=== PATIENT | male | born 1995 | race Caucasian/White ===

== ENCOUNTER 2023-11-11 12:43 | Emergency (ER) | payer OTHER ==
[2023-11-11 13:34] VITALS: BP 110/74; PULSE 88; RESP 18; TEMP 97.2; BMI 34.0
[2023-11-11 14:06] LABS: BASO % 0.4 % (0-2.0); HEMATOCRIT 44.4 % (35.4-49); HEMOGLOBIN 15.2 GM/dL (11.7-16.9); LYMPH % 22.2 % (8-40); MCH 30.5 pg (25.7-33.7); MCHC 34.3 g/dl (32.0-35.9); MEAN CELL VOLUME 88.9 fl (80-96); MEAN PLT VOLUME 7.9 fl (7.5-11.1); MONO % 5.5 % (3.8-10.2); NEUT % 70.9 % (42.8-82.8); PLATELET COUNT 302 10^3/uL (134-434); RDW 13.1 % (11.9-15.9); WHITE BLOOD COUNT 9.8 K/mm3 (4.0-10.0)
[2023-11-11 14:31] LABS: POTASSIUM 3.8 mmol/L (3.5-5.1)
[2023-11-11 14:34] LABS: CALCIUM 9.5 mg/dL (8.5-10.1)
[2023-11-11 14:35] LABS: ALBUMIN 4.2 g/dl (3.4-5.0); BLOOD UREA NITROGEN 15.6 mg/dL (7-18)
[2023-11-11 14:38] LABS: PHOSPHOROUS 3.7 mg/dL (2.5-4.9)
[2023-11-11 14:39] LABS: TOT PROT 7.6 g/dl (6.4-8.2)
[2023-11-11 14:40] LABS: BILIRUBIN,TOTAL 0.7 mg/dL (0.2-1)
[2023-11-11 15:10] LABS: CREATININE 0.8 mg/dL (0.55-1.3)
== END 2023-11-11 15:25 | disposition home or self-care (01) ==
LOC: JER 12:43
DX: R55 Syncope and collapse (principal); R42 Dizziness and giddiness
CPT/HCPCS: 36415; 80053; 82962; 83735; 84100; 84484; 85025; 93005; 93010; 99284-25